=== PATIENT | female | born 1935 | race Caucasian/White ===

== ENCOUNTER 2017-07-07 17:16 | Inpatient (IN) | payer OTHER, MEDICAID ==
[~2017-07-07] VITALS: Ht 160 cm; Wt 47.2 kg
--- NOTE | 2017-07-07 17:58 | NUR ---
CALL RECEIVED FROM RAY,DAUGHTER, PHONE# [phone]. [facility] STAFF CALLED BECAUSE OF SOB AND PALPITATION.
[2017-07-07] MEDS ORDERED: IV NS 0.9% 1,000 ML BAG IV ONE (20:00)
--- NOTE | 2017-07-07 20:08 | NUR ---
SPEAKING TO PT'S DAUGHTER RE: PT.
--- NOTE | 2017-07-07 20:10 | NUR ---
RAY, PT'S DAUGHTER, WOULD LIKE TO BE CALLED WITH UPDATE FROM .
[2017-07-07 20:19] LABS: BASOPHILS # (AUTO) 0.1 /CMM (0.0-0.2); BASOPHILS % (AUTO) 0.7 % (0.0-2.0); EOSINOPHILS # (AUTO) 0.1 /CMM (0.0-0.7); EOSINOPHILS % (AUTO) 0.6 % (0.0-6.0); HEMATOCRIT 37 % (33-45); HEMOGLOBIN 11.9 g/dL (11.5-14.8); LYMPHOCYTES # (AUTO) 1.1 /CMM (0.8-4.8); LYMPHOCYTES % (AUTO) 6.4 % (20.0-44.0); MEAN CORPUSCULAR HEMOGLOBIN 24 PG (26.0-33.0); MEAN CORPUSCULAR HGB CONC 32 g/dl (31.0-36.0); MEAN CORPUSCULAR VOLUME 75 fL (82-100); MONOCYTES # (AUTO) 3.4 /CMM (0.1-1.30); MONOCYTES % (AUTO) 19.2 % (2.0-12.0); NEUTROPHILS # (AUTO) 13.2 /CMM (1.8-8.9); NEUTROPHILS % (AUTO) 73.1 % (43.0-81.0); PLATELET COUNT (AUTO) 519 /CMM (150-450); RDW COEFFICIENT OF VARIATION 19.4 (11.5-15.0); RED BLOOD CELL COUNT(AUTO) 4.99 MIL/uL (4.0-5.2); WHITE BLOOD COUNT (AUTO) 17.9 K/uL (4.3-11.0)
[2017-07-07 20:22] LABS: CALCIUM, SERUM 9.1 mg/dL (8.5-10.1); CARBON DIOXIDE 38 mmol/L (21-32); CHLORIDE 98 mmol/L (98-107); CREATININE 0.6 mg/dL (0.6-1.3); GLUCOSE 92 mg/dL (74-106); POTASSIUM 4.2 mmol/L (3.5-5.1); SODIUM SERUM 135 mmol/L (136-145); UREA NITROGEN, BLOOD 35 mg/dL (7-18)
[2017-07-07 20:26] LABS: INR 0.96 (0.87-1.13)
[2017-07-07 20:28] LABS: ALANINE AMINOTRANSFERASE 49 U/L (12-78); ALKALINE PHOSPHATASE 45 U/L (46-116); ASPARTATE AMINOTRANSFERASE 24 U/L (15-37); BILIRUBIN,DIRECT 0.1 mg/dL (0.0-0.2); BILIRUBIN,TOTAL 0.4 mg/dL (0.2-1.0); TOTAL PROTEIN, SERUM 6.3 g/dL (6.4-8.2)
[2017-07-07 20:30] LABS: TROPONIN I 0.074 ng/mL (0.00-0.056)
[2017-07-07] MEDS ORDERED: PIPERACILLIN /TAZOBACTAM 3.375 G in IV D5W 50 ML IV ONE (21:00)
[2017-07-07] MEDS ORDERED: CARV6.252 PO (21:16)
[2017-07-07] MEDS ORDERED: SERT100T PO (21:16)
[2017-07-07] MEDS ORDERED: FLUT16SP BNOSTRILS (21:16)
[2017-07-07] MEDS ORDERED: MECL12.582 PO (21:16)
[2017-07-07] MEDS ORDERED: MIRT15TA PO (21:16)
[2017-07-07] MEDS ORDERED: ASPI-1169 PO (21:16)
[2017-07-07] MEDS ORDERED: HYDR-552 PO (21:16)
[2017-07-07] MEDS ORDERED: AMLO5TAB2 PO (21:16)
--- NOTE | 2017-07-07 21:23 | NUR ---
XRAY IN PROGRESS AT THE BEDSIDE.
--- NOTE | 2017-07-07 21:23 | NUR ---
RECEIVED ORDERS FROM DR. LEMON. CALLED CNMT FOR MED-SURG BED
[2017-07-07 21:46] LABS: BAND % (MANUAL) 16 % (0.0-5.0); LYMPHOCYTES % (MANUAL) 11 % (16-48); MONOCYTES % (MANUAL) 18 % (0-11.0); NEUTROPHILS % (MANUAL) 55 (42-76)
[2017-07-07] MEDS ORDERED: PIPERACILLIN /TAZOBACTAM 3.375 G VIAL IV ONE (21:48)
--- NOTE | 2017-07-07 21:54 | NUR ---
CALLING REPORT TO MS NURSE.
[2017-07-07 22:00] VITALS: BP 121/64
--- NOTE | 2017-07-07 22:00 | NUR ---
RN NOTES ADMITTED A 81 YEARS OLD FEMALE PT FROM ER VIA GURNEY. PT ALERT AND ORIENTED X3, DENIES ANY PAIN AND DISCOMFORT AT THIS TIME. PT ON O2 INHALATION AT 2LPM VIA NC, AND TOLERATED WELL. IV ACCESS ON LEFT AC PATENT AND INTACT WITH ONGOING IV ZOSYN INFUSING WELL. SKIN AND BODY ASSESSMENT DONE, SKIN INTACT. PT COUGH AT TIMES, PRODUCTIVE WITH THICK WHITE SECRETIONS. SAFETY MEASURES AND FALL PRECAUTION OBSERVED. PLAN OF CARE DISCUSSED WITH THE PT. WILL CONTINUE TO MONITOR PT.
[2017-07-07] MEDS ORDERED: ACETAMINOPHEN 325 MG TABLET PO PRN (23:30)
[2017-07-07] MEDS ORDERED: Potassium Chloride 20 MEQ in IV D5/0.45 NACL 1,000 ML IV PRN (23:30)
[2017-07-07] MEDS ORDERED: LEVOFLOXACIN 500 MG /D5W 100ML 500 MG in PREMIX 1 EA IV SCH (23:30)
[2017-07-07] MEDS ORDERED: MIRTAZAPINE 15 MG TABLET PO SCH (23:30)
[2017-07-07] MEDS ORDERED: HYDROCODONE/APAP 5/325MG 1 EACH TABLET PO PRN (23:30)
[2017-07-07] MEDS ORDERED: LEVOFLOXACIN 500 MG /D5W 100ML 100 ML IV ONE (23:38)
[2017-07-07] MEDS ORDERED: MIRTAZAPINE 15 MG TABLET ONE (23:39)
[2017-07-07] MEDS ORDERED: IV PREMIX D5 1/2NS + KCL 1,000 ML IV ONE (23:58)
--- NOTE | 2017-07-08 06:31 | NUR ---
RN NOTES PT ASLEEP, HOB ELEVATED, WITH O2 INHALATION AT 2LPM VIA NC WITH GOOD SATURATION. VITAL SIGNS STABLE, AFEBRILE. CURRENT DIET TOLERATED WELL,NO EPISODE OF NAUSEA AND VOMITING. DENIES ANY PAIN AND DISCOMFORT. COUGH AT TIMES, PRODUCTIVE WITH WHITE THICK SECRETIONS NOTED. FALL PRECAUTION OBSERVED. ALL NEEDS ATTENDED. WILL ENDORSE TO MORNING RN FOR CONTINUITY OF CARE.
--- NOTE | 2017-07-08 07:30 | NUR ---
MS RN OPENING NOTES PATIENT IS ALERT AND RESTING IN BED. IN NO APPARENT DISTRESS. BEDSIDE RAILS ARE UP X2. BED IS LOCKED AND LOWERED. CALL LIGHT IS WITHIN REACH. WILL CONTINUE TO MONITOR.
[2017-07-08 07:48] LABS: EOSINOPHILS # (AUTO) 0.3 /CMM (0.0-0.7); EOSINOPHILS % (AUTO) 2.4 % (0.0-6.0); HEMATOCRIT 35 % (33-45); LYMPHOCYTES # (AUTO) 0.8 /CMM (0.8-4.8); LYMPHOCYTES % (AUTO) 5.5 % (20.0-44.0); MEAN CORPUSCULAR HEMOGLOBIN 24 PG (26.0-33.0); MEAN CORPUSCULAR HGB CONC 32 g/dl (31.0-36.0); MEAN CORPUSCULAR VOLUME 77 fL (82-100); MONOCYTES # (AUTO) 1.8 /CMM (0.1-1.30); MONOCYTES % (AUTO) 13.2 % (2.0-12.0); NEUTROPHILS % (AUTO) 78.9 % (43.0-81.0); PLATELET COUNT (AUTO) 442 /CMM (150-450); RED BLOOD CELL COUNT(AUTO) 4.51 MIL/uL (4.0-5.2)
[2017-07-08 08:00] VITALS: BP 138/70
[2017-07-08 08:11] LABS: CALCIUM, SERUM 8.7 mg/dL (8.5-10.1); CARBON DIOXIDE 37 mmol/L (21-32); CHLORIDE 102 mmol/L (98-107); CREATININE 0.6 mg/dL (0.6-1.3); GLUCOSE 77 mg/dL (74-106); POTASSIUM 5.3 mmol/L (3.5-5.1); SODIUM SERUM 143 mmol/L (136-145); UREA NITROGEN, BLOOD 29 mg/dL (7-18)
[2017-07-08] MEDS ORDERED: LEVO500T75 PO (08:59)
[2017-07-08] MEDS ORDERED: ASPIRIN 81 MG TAB.CHEW PO SCH (09:00)
[2017-07-08] MEDS ORDERED: SERTRALINE HCL 50 MG TABLET PO SCH (09:00)
[2017-07-08] MEDS ORDERED: FLUTICASONE PROPIONATE 16 GM BOTTLE NS SCH (09:00)
[2017-07-08] MEDS ORDERED: MECLIZINE HCL 12.5 MG TABLET PO PRN (09:00)
[2017-07-08] MEDS ORDERED: HYDROCODONE/APAP 5/325MG 1 EACH TABLET PO PRN (09:00)
[2017-07-08] MEDS: CARVEDILOL 6.25 MG TABLET PO SCH ×2 (09:17→16:34)
--- NOTE | 2017-07-08 13:00 | NUR ---
[facility] WILL [facility]
--- NOTE | 2017-07-08 13:46 | NUR ---
GAVE REPORT TO LINDA SCHREIBER FROM [facility]
[2017-07-08 16:00] VITALS: BP 120/55
[2017-07-08 16:34] VITALS: BP 120/55
--- NOTE | 2017-07-08 17:00 | NUR ---
PATIENT DISCHARGED IN STABLE CONDITION. IN NO APPARENT DISTRESS. REPORT GIVEN TO EMT. PATIENT WILL BE TRANSFERRED TO [facility]. REPORT GIVEN TO LINDA SCHREIBER AT [facility] [phone]. ALL NEEDS WERE MET. IV WAS REMOVED. ID BAND WAS REMOVED. BELONGINGS WERE SENT WITH THE PATIENT AND EMT TEAM.
[2017-07-08] MEDS ORDERED: MIRTAZAPINE 15 MG TABLET PO SCH (18:00)
== END 2017-07-08 17:10 | DRG 195 ==
LOC: ER 17:17 → MED 22:14
PROVIDERS: ADMIT Internal Medicine; ATTEND Internal Medicine
DX: J15.9 Unspecified bacterial pneumonia (principal); F17.210 Nicotine dependence, cigarettes, uncomplicated; I10 Essential (primary) hypertension; R53.1 Weakness
CPT/HCPCS: 36415; 71045-TC; 80048-TC; 80076-TC; 83605-TC; 84484-TC; 85025-TC; 85730-TC; 87040-TC; A4216; A4606; J1956; J2543; J3480; J3490; J7030; J7060; Z7610